=== PATIENT | female | born 1975 | race Caucasian/White ===

== ENCOUNTER → 2016-07-10 | Outpatient (CLI) | payer OTHER ==
[2016-07-10 09:32] LABS: HEMATOCRIT 42.8 % (37.0-47.0); HEMOGLOBIN 14.7 g/dL (12.0-16.0); MEAN CORPUSCULAR HEMOGLOBIN 36.3 PG (27-31); MEAN CORPUSCULAR HGB CONC 34.3 g/dL (33-37); MEAN PLATELET VOLUME 9.1 FL (7.4-12.2); RDW COEFFICIENT OF VARIATION 12.9 % (11.5-14.5); RED BLOOD COUNT 4.05 10^6/uL (4.20-5.40); WHITE BLOOD COUNT 6.58 10^3/uL (4.8-10.8)
[2016-07-10 09:50] LABS: ASPARTATE AMINO TRANSFERASE 24 IU/L (8-39); BILIRUBIN,TOTAL 0.7 mg/dL (0.3-1.2); BLOOD UREA NITROGEN 11 mg/dL (7-22); BUN/CREATININE RATIO 15.71 (6-20); CALCIUM 9.7 mg/dL (8.7-10.7); CHLORIDE 103 meq/L (98-112); CREATININE 0.7 mg/dL (0.50-1.20); EST GLOMERULAR FILTRATION > 60 (>60 ml/min/1.73m(2)); GLUCOSE 77 mg/dL (78-110); HDL CHOLESTEROL 58 mg/dL (40-150); POTASSIUM 4.1 meq/L (3.8-5.2); SODIUM 137 meq/L (135-145); TOTAL PROTEIN 7.1 g/dL (6.1-8.0); TRIGLYCERIDES 125 mg/dL (44-200)
[2016-07-10 13:02] LABS: INTACT PARATHYROID HORMONE 41.9 PG/ML (7.5-53.5)
[2016-07-10 19:28] LABS: PERCENT IRON SATURATION 54.3 % (14-50)
[2016-07-12 10:33] LABS: VITAMIN B1 WHOLE BLOOD 154 nmol/L (70-180)
== END ==
LOC: LAB 09:15
PROVIDERS: ATTEND Surgery
DX: Z98.84 Bariatric surgery status (principal)
CPT/HCPCS: 36415; 80053; 80061; 82306; 83540; 83550; 83970; 84134; 84425; 85027